=== PATIENT | male | born 1995 | race Caucasian/White ===

== ENCOUNTER 2016-10-14 19:08 | Emergency (ER) | payer SELFPAY ==
[~2016-10-14] VITALS: Ht 190.5 cm; Wt 110.0 kg
[2016-10-14 19:16] VITALS: BP 119/74; PULSE 98; RESP 18; TEMP 98.4; O2SAT 96
--- NOTE | 2016-10-14 19:20 | PD ---
Physical Exam Time Seen by Provider: 19:17 Narrative 20 y/o male here for evaluation of L wrist pain. While working on a car a ratchet fell and hit his L wrist. Vital signs reviewed. Seen at triage desk. Awaiting bed placement. Data Data Last Documented VS Vital Signs Date Time Temp Pulse Resp B/P Pulse Ox O2 Delivery O2 Flow Rate FiO2 10/14/16 19:16 98.4 98 18 119/74 96 MDM Medical Record Reviewed: Yes Supervised Visit with MATILDE: Jose Antonio Rondon Oct 14, 2016 19:20
--- NOTE | 2016-10-14 21:15 | RADRPT ---
EXAM DATE/TIME: 10/14/2016 19:45 [facility] COMPARISON: No previous studies available for comparison. INDICATIONS : Left wrist pain after patient was hit with ratchet today MEDICAL HISTORY : None. SURGICAL HISTORY : None. ENCOUNTER: Initial ACUITY: 1 day PAIN SCORE: 5/10 LOCATION: Left lateral wrist FINDINGS: Three view examination of the left wrist demonstrates no soft tissue swelling, dislocation, or fractu re. The carpal bones are in normal alignment. The joint spaces are maintained. Bony mineralization is normal. CONCLUSION: Intact left wrist. Adam Figueroa MD on October 14, 2016 at 21:12 Board Certified Radiologist. This report was verified electronically.
[2016-10-14] MEDS ORDERED: IBUP-232 PO (21:23)
--- NOTE | 2016-10-14 21:24 | PD ---
HPI Chief Complaint: Injury Time Seen by Provider: 21:18 Travel History International Travel<30 days: No Contact w/Intl Traveler<30days: No Traveled to known affect area: No History of Present Illness HPI 20-year-old male presents to the emergency department for evaluation of left wrist injury that occurred around 4 PM this afternoon. He states his work in a car with a ratchet fell hitting his left wrist. He does have an abrasion to the left medial wrist. He is unsure of his tetanus immunization is up-to-date, but declines it to be updated today. Patient reports no chronic medical problems. He takes no prescribed medications. Patient is right-handed. He states the pain is on the left medial wrist. He has no other complaints at this time. [facility] Past Medical History Medical History: Denies Significant Hx Tetanus Vaccination: Unknown Influenza Vaccination: No Past Surgical History Ear Surgery: Yes (tubes) Tonsillectomy: Yes Social History Alcohol Use: Yes (once monthly) Tobacco Use: Yes Substance Use: No Allergies-Medications (Allergen,Severity, Reaction): Coded Allergies: No Known Allergies (Unverified , 10/14/16) Review of Systems Except as stated in HPI: all other systems reviewed are Neg Physical Exam Narrative GENERAL: Well-nourished, well-developed male patient, ambulatory. Afebrile. SKIN: Focused skin assessment warm/dry. Patient has superficial abrasion left medial wrist. HEAD: Normocephalic. Atraumatic. EYES: No scleral icterus. No injection or drainage. NECK: Supple, trachea midline. No JVD or lymphadenopathy. CARDIOVASCULAR: Regular rate and rhythm without murmurs, gallops, or rubs. Left radial pulse is 2+. RESPIRATORY: Breath sounds equal bilaterally. No accessory muscle use. Lungs sounds are clear to auscultation GASTROINTESTINAL: Abdomen soft, non-tender, nondistended. MUSCULOSKELETAL: No cyanosis, or edema. He has tenderness over left medial wrist. No snuffbox tenderness. He has full sensation to the distal left upper extremity. Data Data Last Documented VS Vital Signs Date Time Temp Pulse Resp B/P Pulse Ox O2 Delivery O2 Flow Rate FiO2 10/14/16 19:16 98.4 98 18 119/74 96 Orders Wrist, Complete ([id number]) (10/14/16 ) Ibuprofen (Motrin) (10/14/16 21:30) Support Splint (10/14/16 21:17) MDM Medical Decision Making Medical Screen Exam Complete: Yes Emergency Medical Condition: Yes Medical Record Reviewed: Yes Interpretation(s) X-ray of the left wrist - intact left wrist Differential Diagnosis Contusion versus fracture versus sprain versus abrasion Narrative Course 20-year-old male presents to the emergency department for evaluation of left wrist injury after a ratchet fell on it while working on a car. He does have an abrasion to the left medial wrist, but declines tetanus immunization up-to- date. X-ray of the left wrist shows no acute fracture. Patient is provided a Velcro wrist splint. He is given ibuprofen 600 mg by mouth in the emergency department. He will be discharged with a prescription for ibuprofen. He is instructed ice and follow up with a primary care physician. He verbalizes agreement and understanding. Diagnosis Primary Impression: Wrist contusion Qualified Code: S60.212A - Contusion of left wrist, initial encounter Additional Impression: Abrasion of wrist Qualified Code: S60.812A - Abrasion of left wrist, initial encounter Referrals: Primary Care Physician call for appointment Patient Instructions: Abrasion (ED), Contusion in Adults (ED), General Instructions Additional Instructions: Ice for 20 minutes 4-5 times daily. Ibuprofen as directed as needed with food for pain. Clean abrasion twice daily with soap and water and apply [id number] antibiotic ointment. Follow-up with your primary care physician. Return to the emergency department for any acute worsening of symptoms. Med/Other Pt SpecificInfo: Prescription(s) given Scripts Ibuprofen 600 Mg [id number] Mg PO TID PRN (PAIN SCALE 1 TO 10) #21 TAB Ref 0 Prov:Aleida London 10/14/16 Disposition: 01 DISCHARGE HOME Condition: Stable Aleida London Oct 14, 2016 21:24
[2016-10-14] MEDS ORDERED: IBUPROFEN 600 MG TAB PO ONE (21:30)
== END 2016-10-14 21:51 | disposition home or self-care (01) ==
LOC: NEPD 19:08
DX: S60.212A Contusion of left wrist, initial encounter (principal); S60.812A Abrasion of left wrist, initial encounter; W20.8XXA Other cause of strike by thrown, projected or falling object, initial encounter
CPT/HCPCS: 73110; 99283; L3908

== ENCOUNTER 2016-10-31 13:03 | Emergency (ER) | payer SELFPAY ==
[~2016-10-31] VITALS: Ht 190.5 cm; Wt 106.5 kg
[~2016-10-31 13:03] MED LIST: IBUP-232 PO
[2016-10-31 13:04] VITALS: BP 128/70; PULSE 104; RESP 20; TEMP 98.8; O2SAT 99
--- NOTE | 2016-10-31 13:21 | PD ---
HPI . right leg abscess Chief Complaint: Skin Problem Time Seen by Provider: 13:20 Travel History International Travel<30 days: No Contact w/Intl Traveler<30days: No Traveled to known affect area: No History of Present Illness HPI 20 yr old male here with c/o right leg abscess that has been present for 3 days. He says he came in because his dad recently had MRSA. He denies any fever or chills. No other complaints. PFSH Past Surgical History Ear Surgery: Yes (tubes) Tonsillectomy: Yes Social History Alcohol Use: Yes (once monthly) Tobacco Use: Yes Substance Use: No Allergies-Medications (Allergen,Severity, Reaction): Coded Allergies: No Known Allergies (Unverified , 10/14/16) Reported Meds & Prescriptions Reported Meds & Active Scripts Active Bactrim DS (Sulfamethoxazole-Trimethoprim) 800-160 Mg Tab 1 Tab PO BID Ibuprofen 600 Mg Tab 600 Mg PO TID PRN Review of Systems General / Constitutional: No: Fever Eyes: No: Visual changes HENT: No: Headaches Cardiovascular: No: Chest Pain or Discomfort Respiratory: No: Shortness of Breath Gastrointestinal: No: Abdominal Pain Genitourinary: No: Dysuria Musculoskeletal: No: Pain Skin: Positive Other (right leg infection ), No Rash Neurologic: No: Weakness Psychiatric: No: Depression Endocrine: No: Polydipsia Hematologic/Lymphatic: No: Easy Bruising Physical Exam Narrative GENERAL: AAO x 3, no acute distress, Well-nourished, well-developed patient. SKIN: Warm and dry. No visible rashes, right lateral thigh with 2 cm induration without fluctuance, zone of inflammation extending 4 cm, no drainable abscess, no drainage present HEAD: Normocephalic and atraumatic. EYES: No scleral icterus. No injection or drainage. ENT: No nasal drainage noted. Mucous membranes pink. Airway patent. NECK: Supple, trachea midline. No JVD. CARDIOVASCULAR: Regular rate and rhythm without murmurs, gallops, or rubs. RESPIRATORY: Breath sounds equal bilaterally. No accessory muscle use. No rhonchi or rales. GASTROINTESTINAL:visual inspection normal EXTREMITIES: No cyanosis or edema. BACK: No obvious deformity. NEURO: CN II-12 intact, conventional mortgage underwriter strength normal b/l, UE and LE 5/5, no focal deficits PSYCH: AAO x 3, normal affect. Data Data Last Documented VS Vital Signs Date Time Temp Pulse Resp B/P (MAP) Pulse Ox O2 Delivery O2 Flow Rate FiO2 10/31/16 13:04 98.8 104 20 128/70 (89) 99 Room Air MDM Medical Decision Making Medical Screen Exam Complete: Yes Emergency Medical Condition: Yes Medical Record Reviewed: Yes Differential Diagnosis right leg cellulitis, early abscess, less likely shingles, less likely sepsis Narrative Course 20 yr old male here with cellulitis to his right lateral leg. There is not definitive abscess for drainage. I have recommended a course of Bactrim. I recommend patient try warm compresses to see if there is a head formation and return to the ED if there is. We discussed the signs of worsening infection. Patient verbalized understanding of instructions, questions were answered, and thanked me for their care. I advised them if their condition worsens, please return to the nearest emergency room for further care. Diagnosis Primary Impression: Cellulitis of right leg Patient Instructions: General Instructions Additional Instructions: You can try to use warm compresses to the area to see if a head develops. If it does, you can come back to the emergency department to have it drained. [place] for worsening signs of infection which include fever, increased redness , increased warmth, purulent drainage, increased swelling or streaking. If any of these develop, please go to the nearest emergency room. Please return to emergency department if your symptoms return or worsen. Follow up with your primary care provider. Take medications as prescribed. Med/Other Pt SpecificInfo: Prescription(s) given Scripts Sulfamethoxazole-Trimethoprim (Bactrim DS) 800-160 Mg Tab 1 TAB PO BID for Infection, #20 TAB 0 Refills Prov: Althea Swartz MD 10/31/16 Disposition: 01 DISCHARGE HOME Condition: Stable Alaina Mcfadden Oct 31, 2016 13:21
[2016-10-31] MEDS ORDERED: BACT800T5 PO (13:22)
== END 2016-10-31 13:46 | disposition home or self-care (01) ==
LOC: NEPD 13:03
DX: L03.115 Cellulitis of right lower limb (principal)
CPT/HCPCS: 99283